=== PATIENT | male | born 1950 | race Caucasian/White ===

== ENCOUNTER 2018-08-12 12:08 | Outpatient (CLI) | payer MEDICARE, OTHER ==
--- NOTE | 2018-08-12 14:06 | CT Report ---
Reason: ENCNTR SCREEN FOR MALIGNANT NEOPLASM OF RESPIRATOR Procedure Date: 08/12/2018 Accession Number: [id number] / [id number] Procedure: CT - Low Dose Lung Cancer Screen CPT Code: FULL RESULT: EXAM CT LUNG SCREEN EXAM DATE: 08/12/2018 12:40 PM. HISTORY: 68-year-old patient with [id number] smoking history. Currently smoking: Yes. COMPARISON: None. TECHNIQUE: CT examination of the entire thorax without contrast was performed using low-dose technique. Thin section coronal, axial, sagittal and MIP axial images were obtained. In accordance with CT protocol optimization, one or more of the following dose reduction techniques were utilized for this exam: automated exposure control, adjustment of mA and/or KV based on patient size, or use of iterative reconstructive technique. FINDINGS: Nodules: Right upper lobe: 2 mm nodule image 47 series 4. Right middle lobe: None. Right lower lobe: None. Left upper lobe: None. Left lower lobe: None. Emphysema: Minimal. Pleura: Unremarkable. Aorta: Mildly calcified. Mediastinum: Unremarkable. Coronary calcifications: Moderate to severe three-vessel coronary calcifications. Other pulmonary findings: Subsegmental linear density at the right lung base as seen on image 108 series 4 likely represents either scarring or subsegmental atelectasis. A similar finding is seen at the left lung base on image 114. Other extrapulmonary findings: None. IMPRESSION: Lung-RADS ASSESSMENT CATEGORY: 2 - benign appearance. Probability of malignancy: Less than 1%. RECOMMENDATION: Recommend continuation of annual low-dose chest CT screening as per lung RADS guidelines. [facility]
== END 2018-08-12 12:09 | disposition home or self-care (01) ==
LOC: DI 12:08
PROVIDERS: ATTEND Family Medicine
DX: Z12.2 Encounter for screening for malignant neoplasm of respiratory organs (principal); F17.210 Nicotine dependence, cigarettes, uncomplicated

== ENCOUNTER 2020-11-19 17:25 | Outpatient (CLI) | payer MEDICARE, OTHER | END 2020-11-19 17:26 | disposition short-term general hospital (02) | LOC: EMS 17:25 | DX: R11.0 Nausea (principal); R06.02 Shortness of breath; R68.83 Chills (without fever); M79.10 Myalgia, unspecified site; R07.9 Chest pain, unspecified | CPT/HCPCS: A0425; A0427 ==

== ENCOUNTER 2021-02-03 12:41 | Outpatient (CLI) | payer MEDICARE, OTHER ==
--- NOTE | 2021-02-03 16:46 | MRI Report ---
PROCEDURE: Ankle RT W/O INDICATIONS: ACHILLES PAIN AND SWELLING TECHNIQUE: Noncontrast sagittal T1 spin echo and T2 fast spin echo with fat saturation, axial proton density fas t spin echo and T2 fast spin echo with fat saturation, coronal T1 spin echo and T2 fast spin echo wit h fat saturation through the ankle/hindfoot. COMPARISON: None. Findings: Bones: No evidence of fracture, infiltration, ischemia or contusion. Muscles: No evidence of muscular atrophy or edema. Anterior tibiofibular ligament: Intact. Posterior tibiofibular ligament: Intact. Calcaneofibular ligament: Intact. Talar dome: No significant abnormality. Anterior talofibular ligament: Intact. Posterior talofibular ligament: Intact. Deltoid ligament: Intact. Peroneal tendons: No evidence of tear or tenosynovitis. Tibialis posterior: No evidence of tear. Near circumferential fluid, compatible with tenosynovitis. Flexor digitorum: No evidence of tear. Circumferential fluid, compatible with tenosynovitis. Flexor hallucis longus: No evidence of tear. Circumferential fluid surrounding the distal aspect. Sinus Tarsi: T2 hyperintense signal, compatible with edema. No mass. Achilles tendon: Thickening of the distal Achilles tendon with small partial tear (series 701, image 23). Reticulated T2 hyperintense signal within Kager's fat pad. Joint effusion: Small tibiotalar joint effusion. Plantar fascia: No evidence of tear or inflammation. IMPRESSION: 1. Fluid surrounding the tibialis posterior, flexor hallucis longus, and flexor digitorum tendons, co mpatible tenosynovitis. 2. Small tibiotalar joint effusion. 3. Thickening of the distal Achilles tendon with small partial tear. 4. Edematous change of Kager's fat pad. Reviewed by: Cruz Watts MD on 02/03/2021 4:45 PM PST Approved by: Cruz Watts MD on 02/03/2021 4:45 PM PST Station ID: [id number]
== END 2021-02-03 12:42 | disposition home or self-care (01) ==
LOC: DI 12:41
PROVIDERS: ATTEND Podiatrist
DX: S86.011A Strain of right Achilles tendon, initial encounter (principal); M25.471 Effusion, right ankle; R60.0 Localized edema